=== PATIENT | male | born 1965 | race Caucasian/White ===

== ENCOUNTER → 2019-06-11 | Outpatient (CLI) | payer OTHER ==
--- NOTE | 2019-06-16 15:36 | SLEEP ---
DATE OF STUDY: 06/11/2019 HOME SLEEP STUDY ATTENDING PHYSICIAN: Neo Julian DO The patient is a 53-year-old who weighs 285 pounds with a BMI of 38.6. The patient's [place] score was 5. The patient underwent home sleep study performed by [facility]. Total recording time was 550 minutes. During the night study, the patient had 642 obstructive apneas, 1 central and no mixed apneas and 20 hypopneas. The patient's apnea-hypopnea index was 72 per hour. Nocturnal oximetry study revealed an average oxygen saturation of 90% with the lowest of 53%. An 182 minutes were spent in oxygen saturation less than 90% and 77 minutes with saturation less than 85% and another 14 minutes with saturation less than 80%. Mean heart rate 73 beats per minute. IMPRESSION: 1. Severe sleep apnea-hypopnea syndrome at an AHI of 72 per hour. 2. Severe nocturnal hypoxia secondary to obstructive sleep apnea. RECOMMENDATIONS: 1. The patient should return to the sleep lab for in-lab titration study due to the severity of sleep apnea. 2. Once the patient is optimally treated, then follow up in 4-6 weeks to assess compliance with CPAP and to document clinical improvement. 3. Weight loss is strongly advised. 4. Avoid [employer] depressants. 5. Cautioned regarding driving or operating heavy machinery until symptoms of sleep apnea resolve with the use of CPAP. MIRACLE ALVARADO MD DR: KENYATTA/cristhian JOB#: [id number] / [id number]
== END | disposition home or self-care (01) ==
LOC: RT 09:46
PROVIDERS: ATTEND Family Medicine
DX: G47.33 Obstructive sleep apnea (adult) (pediatric) (principal); G47.34 Idiopathic sleep related nonobstructive alveolar hypoventilation
CPT/HCPCS: G0399